=== PATIENT | female | born 1970 | race Two or more races ===

== ENCOUNTER 2023-04-11 18:43 | Emergency (ER) | payer MEDICAID, OTHER ==
[~2023-04-11] VITALS: Ht 160 cm; Wt 94.5 kg
[2023-04-11 18:49] VITALS: BP 146/97; PULSE 98; RESP 18; TEMP 99.2
== END 2023-04-11 19:43 | disposition left against medical advice (07) ==
LOC: EMS 18:45
DX: R10.30 Lower abdominal pain, unspecified (principal); R11.0 Nausea; Z53.21 Procedure and treatment not carried out due to patient leaving prior to being seen by health care provider
CPT/HCPCS: 99281; Z7502